=== PATIENT | female | born 1950 | race Hispanic/Latino ===

== ENCOUNTER 2023-04-22 05:05 | Observation (INO) | payer OTHER ==
[2023-04-17 10:54] VITALS: BP 157/61; PULSE 65; RESP 18
[2023-04-17 10:55] LABS: CREATININE 1.3 mg/dL (0.5-1.5); POTASSIUM 4.6 mmol/L (3.5-5.1)
[2023-04-22] VITALS (28 sets, daily range): BP systolic 120–157; BP diastolic 45–69; PULSE 66–78; RESP 15–20; O2SAT 96–98
[~2023-04-22] VITALS: Ht 160 cm; Wt 73.5 kg
[~2023-04-22 05:05] MED LIST: AEC81 PO; ALEN35TA53 PO; AMIO200T68 PO; ATOR20TA65 PO; LEVO25TA54 PO; LOSA100T59 PO; RUTI1TAB2 PO; SPIR25TA6 PO; TORS20TA4 PO; [UNRECOGNIZED DRUG - CODE] PO
[2023-04-22] MEDS: CEFAZOLIN SODIUM 2 GM VIAL ONE (05:19)
[2023-04-22] MEDS: 0.9%NACL 1000ML 1,000 ML IV ONE (05:19)
[2023-04-22] MEDS ORDERED: CEFAZOLIN SODIUM 1 GM VIAL ONE (07:07)
[2023-04-22] MEDS ORDERED: LIDOCAINE PF 100MG/5ML (2%) SYRINGE 5ML ONE (07:53)
[2023-04-22] MEDS ORDERED: MIDAZOLAM HCL 1 MG/ML 2ML VIAL ONE (07:54)
[2023-04-22] MEDS ORDERED: ROCURONIUM BROMIDE 10MG/1ML 5ML VL ONE (07:54)
[2023-04-22] MEDS ORDERED: FENTANYL CITRATE PF 50 MCG/1 ML 2ML VIAL ONE ×2 (07:54→09:09)
[2023-04-22] MEDS ORDERED: PROPOFOL 10 MG/ML 20ML VIAL IV ONE (07:54)
[2023-04-22] MEDS ORDERED: PHENYLEPHRINE HCL 10 MG/ML 1ML VIAL IV ONE (07:55)
[2023-04-22] MEDS ORDERED: GLYCOPYRROLATE 0.2 MG/ML 5 ML VIAL ONE (07:55)
[2023-04-22] MEDS ORDERED: NEOSTIGMINE METHYLSULFATE 1MG/ML IV ONE (07:55)
[2023-04-22] MEDS ORDERED: DEXAMETHASONE SOD PHOSPHATE 4 MG/ML 1ML VIAL ONE (08:19)
[2023-04-22] MEDS ORDERED: ONDANSETRON 4MG INJ ONE (08:19)
[2023-04-22] MEDS ORDERED: EPHEDRINE SULFATE 50 MG/ML AMPULE ONE (08:33)
[2023-04-22] MEDS: TRANEXAMIC ACID 1000MG/10ML ONE ×2 (08:45→10:38)
[2023-04-22] MEDS: CEFAZOLIN SODIUM 1 GM VIAL ONE (09:07)
[2023-04-22] MEDS: GENTAMICIN SULFATE 80 MG/2 ML VIAL ONE (09:07)
[2023-04-22] MEDS: 0.9%NACL 48.45 ML, ROPIVACAINE 0.5% 49.25ML, EPINEPH 0.5MG KETOROLAC 30MG,CLONIDINE 80MCG IV PRN (09:07)
[2023-04-22] MEDS ORDERED: HYDRALAZINE 20MG/ML VIAL ONE (09:15)
[2023-04-22] MEDS: ONDANSETRON 4MG INJ ONE (11:58)
[2023-04-22] MEDS: METOCLOPRAMIDE 10 MG/2 ML VIAL ONE (11:59)
[2023-04-22] MEDS: ACETAMINOPHEN WITH CODEINE 1 TAB TAB ONE (13:33)
[2023-04-22] MEDS ORDERED: DIPHENOXYLATE HCL/ATROPINE 2.5/0.025 MG TAB PO PRN (16:00)
[2023-04-22] MEDS ORDERED: ONDANSETRON 4MG INJ IVP PRN (16:00)
[2023-04-22] MEDS ORDERED: BENZOCAINE/MENTH/CETYLPYRD CL 1 EACH LOZENGE MM PRN (16:00)
[2023-04-22] MEDS ORDERED: DiphenhydrAMINE HCL 50 MG/ML VIAL IM PRN (16:00)
[2023-04-22] MEDS ORDERED: WARFARIN SODIUM 5 MG TAB PO SCH (16:00)
[2023-04-22] MEDS ORDERED: DIPHENHYDRAMINE HCL 25 MG CAPSULE PO PRN (16:00)
[2023-04-22] MEDS ORDERED: ACETAMINOPHEN 325 MG TAB PO PRN ×2 (16:00)
[2023-04-22] MEDS ORDERED: MAG/ALUM/SIMETH 30 ML UDCUP PO PRN (16:00)
[2023-04-22] MEDS ORDERED: DIPHENHYDRAMINE HCL 25 MG CAPSULE PO SCH (16:00)
[2023-04-22] MEDS ORDERED: ACETAMINOPHEN 325 MG TAB PO SCH (16:00)
[2023-04-22] MEDS: HYDROMORPH /0.9% NACL/PF PCA 50 ML IV PRN (16:16)
[2023-04-22] MEDS: 0.9%NACL 1000ML 1,000 ML IV SCH (16:16)
[2023-04-22] MEDS: CEFAZOLIN SODIUM 2 GM VIAL IVPB SCH (16:19)
[2023-04-22] MEDS ORDERED: AMIODARONE 200 MG TABLET PO SCH (18:00)
[2023-04-22] MEDS: WARFARIN SODIUM 5 MG TAB PO SCH (18:08)
[2023-04-22] MEDS: SPIRONOLACTONE 25 MG TAB PO SCH (21:26)
[2023-04-23] VITALS: BP 115/45; PULSE 63; RESP 18
[2023-04-23 04:00] VITALS: BP 116/47; PULSE 72; RESP 18
[2023-04-23 04:33] LABS: HEMATOCRIT 28.3 % (36-48); MEAN CORPUSCULAR HEMOGLOBIN 29.6 pg (27.0-33.0); MEAN CORPUSCULAR HGB CONC 32.2 g/dL (32.0-36.0); MEAN CORPUSCULAR VOLUME 92.2 fL (79-99); RED BLOOD CELL COUNT(AUTO) 3.07 MIL/uL (4.00-5.50); RED CELL DISTRIBUTION WIDTH 13.3 % (11.0-15.5); WHITE BLOOD COUNT (AUTO) 11.5 K/uL (4.8-10.8)
[2023-04-23 04:48] LABS: INR 1.13 (0.85-1.15)
[2023-04-23 04:49] LABS: CREATININE 1.3 mg/dL (0.5-1.5); POTASSIUM 4.4 mmol/L (3.5-5.1)
[2023-04-23 07:35] VITALS: BP 127/47; PULSE 72; RESP 18
[2023-04-23 08:00] VITALS: O2SAT 96
[2023-04-23] MEDS: TORSEMIDE 20 MG TAB PO SCH (08:55)
[2023-04-23] MEDS: ASPIRIN 81 MG EC TAB PO SCH (08:55)
[2023-04-23] MEDS: ATORVASTATIN 20 MG TABLET PO SCH (08:55)
[2023-04-23] MEDS: LOSARTAN 100 MG TABLET PO SCH (08:55)
[2023-04-23] MEDS: LEVOTHYROXINE 25 MCG TABLET PO SCH (09:00)
[2023-04-23 12:20] VITALS: BP 148/61; PULSE 69; RESP 19
[2023-04-23] MEDS: LACTULOSE 20 GM/30 ML UDCUP PO PRN (12:39)
[2023-04-23] MEDS: ACETAMINOPHEN WITH CODEINE 1 TAB TAB PO PRN (12:40)
[2023-04-27] MEDS ORDERED: ALENDRONATE SODIUM 35 MG TAB PO SCH (09:00)
== END 2023-04-23 16:00 | disposition home health service (06) ==
LOC: DAH 05:05 → DAHIP 05:06 → 4AH 15:55
PROVIDERS: ADMIT Orthopaedic Surgery; ATTEND Orthopaedic Surgery
DX: M17.11 Unilateral primary osteoarthritis, right knee (principal); E03.9 Hypothyroidism, unspecified; E78.5 Hyperlipidemia, unspecified; I25.10 Atherosclerotic heart disease of native coronary artery without angina pectoris; I48.0 Paroxysmal atrial fibrillation; I13.0 Hypertensive heart and chronic kidney disease with heart failure and stage 1 through stage 4 chronic kidney disease, or unspecified chronic kidney disease; N18.30 Chronic kidney disease, stage 3 unspecified; I50.32 Chronic diastolic (congestive) heart failure; I25.2 Old myocardial infarction; M81.0 Age-related osteoporosis without current pathological fracture; Z79.899 Other long term (current) drug therapy; Z90.710 Acquired absence of both cervix and uterus; Z90.49 Acquired absence of other specified parts of digestive tract
CPT/HCPCS: 80048 ×2; 36415 ×2; 93005; 87641; 27447; 96376; 96365; 96366 ×2; 96368; 82948 ×2; 97161; 97116 ×2; 97530 ×6; 85027; 85610; G0378 ×22; A4510; A4663; J7030 ×3; J7120; A4215 ×2; A4649 ×5; J3010 ×2; J0690 ×5; J3490 ×5; J2001; J0360; J1580; J2250; J2704; J2405 ×2; J2710; J1100; J2765; J2371; A6223; A4930; C1763 ×2; C1776; A5120; A4223; A4222; A4221